=== PATIENT | female | born 1975 | race Caucasian/White ===

== ENCOUNTER 2019-02-13 18:34 | Emergency (ER) | payer OTHER ==
[~2019-02-13] VITALS: Ht 157.5 cm; Wt 59.0 kg
[~2019-02-13 18:34] MED LIST: ACETAMINOPHEN-1 EAC1 PO; IBUPROFEN 800800 MG PO; STOMACH MED; TOPAMAX 25 MG T25 M1 PO
[2019-02-13] MEDS ORDERED: EXCEDRIN CAPLE1 EACH PO (18:45)
[2019-02-13 19:06] LABS: ABSOLUTE BASOPHILS 0.1 thou/uL (0.0-0.2); ABSOLUTE EOSINOPHILS 0.4 thou/uL (0.0-0.7); ABSOLUTE LYMPHOCYTES 2.7 thou/uL (0.8-5.3); ABSOLUTE MONOCYTES 0.4 thou/uL (0.0-1.2); ABSOLUTE NEUTROPHILS 2.6 thou/uL (1.6-8.1); BASOPHILS 0.9 %; EOSINOPHILS 6.5 %; HEMATOCRIT 36.1 % (37.0-47.0); HEMOGLOBIN 11.9 gm/dL (12.0-15.0); LYMPHOCYTES 44.3 %; MCH 26.7 pg (26.0-34.0); MCHC 32.9 g/dL (28.0-37.0); MCV 81.3 fL (80.0-100.0); MONOCYTES 6.4 %; MPV 7.1 fl. (7.2-11.1); NUCLEATED RBCS 0 /100WBC; PLATELET COUNT* 403 thou/uL (150-400); POLYS 41.9 %; RBC 4.44 mil/uL (4.20-5.00); RDW-CV 16.9 % (10.5-14.5); WBC 6.2 thou/uL (4.0-11.0)
[2019-02-13 19:18] LABS: ANION GAP 11 mmol/L (7-16); BUN 9 mg/dL (7-18); CALCIUM 8.8 mg/dL (8.5-10.1); CHLORIDE 108 mmol/L (98-107); CO2 23 mmol/L (21-32); CREATININE 0.7 mg/dL (0.6-1.3); GLUCOSE 94 mg/dL (70-99); POTASSIUM 3.5 mmol/L (3.5-5.1); SODIUM 142 mmol/L (136-145)
[2019-02-13 19:20] LABS: APTT 26.3 Seconds (25.0-31.3); PROTIME 10.7 Seconds (9.20-11.50)
[2019-02-13 19:31] LABS: ALBUMIN 3.4 g/dL (3.4-5.0); ALKALINE PHOSPHATASE 77 U/L (46-116); CK-MB MASS < 0.5 ng/mL (<0.5-3.6); LIPASE 272 U/L (73-393); MAGNESIUM 1.9 mg/dL (1.8-2.4); NT-PRO BRAIN NAT PEPTIDE 50 pg/mL (<300); SGOT 12 U/L (15-37); SGPT 15 U/L (30-65); TOTAL BILIRUBIN < 0.1 mg/dL (<0.1-1.0); TOTAL PROTEIN 6.8 g/dL (6.4-8.2)
[2019-02-13] MEDS ORDERED: FLEXERIL PO (21:12)
[2019-02-13] MEDS ORDERED: TORADOL 10 MG T10 MG PO (21:12)
[2019-02-13 21:26] VITALS: BP 125/80
--- NOTE | 2019-02-14 13:40 | EKG ---
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1975 Requested By: Gigi Lehman Order Number: [id number] MD: Ralph Zafar Measurements Intervals [place] Rate: 102 P: 75 [place]: 150 QRS: 62 QRSD: 76 T: 54 QT: 322 QTc: 420 Interpretive Statements Sinus tachycardia Baseline wander in lead(s) V4 No previous ECG available for comparison Electronically Signed On 02-14-2019 13:40:17 ELECTRICAL DISCHARGE MACHINE OPERATOR by Ralph Zafar [email or web address] <ELECTRONICALLY SIGNED> By: Ralph Zafar MD, [facility] 02/14/19 1340 1838 1838 Ralph Zafar MD, FACC /EPI
== END 2019-02-13 21:27 | disposition home or self-care (01) ==
LOC: M.ERS 18:34
PROVIDERS: Emergency Medicine
DX: R07.89 Other chest pain (principal); J45.909 Unspecified asthma, uncomplicated; F32.9 Major depressive disorder, single episode, unspecified; G43.909 Migraine, unspecified, not intractable, without status migrainosus; Z86.2 Personal history of diseases of the blood and blood-forming organs and certain disorders involving the immune mechanism; Z88.8 Allergy status to other drugs, medicaments and biological substances